=== PATIENT | female | born 1965 | race Caucasian/White ===

== ENCOUNTER 2022-01-22 08:11 | Day surgery (SDC) | payer OTHER, SELFPAY ==
[2022-01-22] VITALS (14 sets, daily range): BP systolic 125–190; BP diastolic 64–120; PULSE 64–90; RESP 10–20; TEMP 36.2–36.4; O2SAT 98–100
--- NOTE | ~2022-01-22 | XR_ITS ---
EXAMINATION: XR stent kub - surgery DATE: 01/22/2022 16:16 INDICATION: Right internal ureteral stent placement TECHNIQUE: Fluoroscopic images from a right internal ureteral stent placement are submitted for guerline canseco 22 seconds of fluoroscopy time. 40 fluoroscopic images FINDINGS: There is a right double-J internal ureteral stent projecting in expected position, with proximal Bradshaw loop at the level of the renal pelvis and distal loop in the pelvis within the bladder lumen. IMPRESSION: 1. Right internal ureteral stent placement. Please refer to real-time procedural findings for ernesto guzman. Reviewed, dictated and finalized at location B. [employer] IMPRESSION: 1. Right internal ureteral stent placement. Please refer to real-time procedu ral findings for details.
--- NOTE | ~2022-01-22 | CT_ITS ---
EXAMINATION: CT abdomen pelvis wo con DATE: 01/22/2022 09:21 INDICATION: Kidney stones presenting with right flank pain TECHNIQUE: Computed tomography (CT) of the abdomen and pelvis was performed without intravenous contr ast. Automated exposure control and iterative reconstruction technique were employed. The dose-length product was 1265.68 mGy-cm. COMPARISON: None FINDINGS: Lung bases are clear. Heart size is normal. No pericardial or pleural effusion. Small sliding-type hi atal hernia with postoperative change of prior sleeve gastrectomy. Liver, gallbladder, spleen, pancre as, bilateral adrenal glands are normal. 7 x 5 mm at least partially obstructing stone at the right u reteropelvic junction with mild right hydronephrosis. Couple 1 mm stones at middle and lower calyces of the right kidney. More distal right ureter is normal with no hydroureter or ureteral stones. Left kidney and ureter are normal with no left-sided urolithiasis or hydronephrosis. Moderate sigmoid pred ominant diverticulosis without adjacent inflammatory stranding to suggest diverticulitis. Small bowel and appendix are normal. Bladder, uterus and bilateral adnexa are unremarkable. A few phleboliths in the pelvis. No free intraperitoneal gas or fluid. No pathologically enlarged abdominal or pelvic lym phadenopathy. Mild thoracolumbar levocurvature with moderate spondylosis. IMPRESSION: 1. Right nephrolithiasis with at least partially obstructing 7 x 5 mm stone at the right ureteropelvi c junction with mild right hydronephrosis. 2. Small sliding-type hiatal hernia unchanged prior sleeve gastrectomy. 3. Moderate sigmoid diverticulosis. Reviewed, dictated and finalized at location A. Y HOST IMPRESSION: 1. Right nephrolithiasis with at least partially obstructing 7 x 5 mm stone at the right ureteropelvic junction with mild right hydronephrosis. 2. Small sliding-type hiatal hernia unchanged prior sleeve gastrectomy. 3. Moderate sigmoid diverticulosis.
[2022-01-22 08:48] LABS: Basophils Percent Auto 0.1 % (0.2-1.2); Eosinophils Absolute Auto 0.2 K/mm3 (0-0.3); Eosinophils Percent Auto 2.4 % (0-4.4); Hematocrit 46.2 % (37.0-47.0); Hemoglobin 15.2 g/dL (12.0-15.0); Immature Granulocyte Absolute 0.02 K/mm3 (0.00-0.031); Immature Granulocyte Percent A 0.3 % (0-0.5); Lymphocytes Absolute Auto 1.38 K/mm3 (0.9-3.2); Lymphocytes Percent Auto 20.6 % (18.3-44.2); Mean Corpuscular HGB Conc 32.9 g/dl (32-36); Mean Corpuscular Hemoglobin 28.5 pg (26-34); Mean Corpuscular Volume 86.5 fl (80-100); Mean Platelet Volume 11.7 fl (7.4-10.4); Monocytes Absolute Auto 0.5 K/mm3 (0.1-0.6); Monocytes Percent Auto 7.2 % (2.6-8.5); Neutrophils Absolute Auto 4.7 K/mm3 (1.3-6.7); Neutrophils Percent Auto 69.4 % (45.5-73.1); Platelet Count Result 216 k/mm3 (150-375); Red Blood Count 5.34 M/mm3 (4.2-5.4); Red Cell Distribution Width 14.1 % (11.5-14.5); White Blood Count 6.7 K/mm3 (4.5-10.0)
[2022-01-22 08:54] LABS: Appearance Urine Clear (Clear); Bilirubin Urine Negative (Negative); Blood Urine 2+ (Negative); Color Urine Yellow (Yellow); Glucose Urine UA Negative (Negative); Ketones Urine Negative (Negative); Leukocyte Esterase Ur Trace LEU/UL (Negative); Nitrate Urine Negative (Negative); Protein Urine 1+ mg/dL (Negative); Specific Grav Ur 1.025 (1.001-1.035); Urobilinogen Urine 0.2 mg/dL (<2.0); pH Urine 5.5 (5.0-9.0)
[2022-01-22 09:01] LABS: Alanine Aminotransferase 23 U/L (6-35); Albumin Level 4.2 g/dL (3.5-5.1); Alkaline Phosphatase 110 U/L (38-126); Anion Gap 11 mmol/L (8-16); Aspartate Amino Transferase 31 U/L (14-36); Bilirubin,Total 0.8 mg/dL (0.2-1.3); Blood Urea Nitrogen 20 mg/dL (7-17); Calcium 8.8 mg/dL (8.4-10.2); Carbon Dioxide 25 mmol/L (22-30); Chloride 105 mmol/L (98-107); Estimated CRCL calculation 68 ml/min; Estimated Glomerular Filt Rate 51; Glucose 115 mg/dL (65-110); Lipase 98 U/L (23-300); Potassium 4.1 mmol/L (3.4-5.0); Sodium 141 mmol/L (137-145)
[2022-01-22 09:03] LABS: Bacteria Urine Trace /hpf; Mucus Urine Rare /lpf; RBC Urine 21-50 /hpf (0-2); Squamous Epithelial Cell Urine Few /hpf (Few); WBC Urine 0-3 /hpf
--- NOTE | 2022-01-22 09:07 | ED.GENADULT ---
HPI - General Adult General Chief complaint: Back Pain/Injury Stated complaint: right flank pain Time Seen by Provider: 01/22/22 08:49 History of Present Illness HPI narrative: 57-year-old female past medical history of kidney stones presents with left flank and back pain, hematuria. Pain is intermittent and comes in waves of intensity. This feels like previous kidney stones that she has had although it has been quite sometime since she has had 1. Related Data Home Medications Medication Instructions Recorded Confirmed amitriptyline 25 mg tablet 25 mg PO HS 01/22/22 01/31/22 zolpidem 5 mg tablet 5 mg PO HS 01/22/22 01/31/22 Allergies Allergy/AdvReac Type Severity Reaction Status Date / Time sulfamethoxazole Allergy Redness of Verified 01/29/22 10:27 [From Skin Sulfamethoxazole-Trimethoprim] trimethoprim Allergy Redness of Verified 01/29/22 10:27 [From Skin Sulfamethoxazole-Trimethoprim] NSAIDS (Non-Steroidal AdvReac Unknown R/T Verified 01/29/22 10:25 Anti-Inflamma GASTRIC SLEEVE Review of Systems Review of Systems: CONSTITUTIONAL: Denies fever, chills, or sweats. EYES: Denies visual changes, redness, or discharge. ENT: Denies rhinorrhea, congestion, sore throat, or otalgia. CARDIOVASCULAR: Denies chest pain, palpitations, or edema. RESPIRATORY: Denies cough or dyspnea. GASTROINTESTINAL: Denies abdominal pain, nausea, vomiting, or diarrhea. GENITOURINARY: Denies dysuria or hematuria. SKIN: Denies rash or itching. MUSCULOSKELETAL: Denies back pain, joint pain, or myalgia. NEUROLOGIC: Denies headache, numbness, or weakness. PSYCHIATRIC: Denies anxiety or depression. [facility] Past Medical History Medical History Morbid obesity with BMI of 40.0-44.9, adult Right renal stone Ureterolithiasis Social History Social History Smoking status: Never smoker Alcohol intake: current Alcohol use details: VERY RARE Substance use: never Substance use type: does not use Living arrangements: with family Spiritual care concerns: No Exam Narrative: GENERAL: Well-appearing, well-nourished, and in no acute distress. HEAD: Normocephalic, atraumatic. EYES: PERRLA and EOMI. ENT: Nares clear, no rhinorrhea or epistaxis. Mucous membranes moist. NECK: Supple. CHEST: Clear to auscultation. No respiratory distress. HEART: Regular rate and rhythm. No murmur heard. Normal peripheral pulses. ABDOMEN: Soft, nontender, nondistended, normal active bowel sounds. EXTREMITIES: Normal range of motion. No edema. SKIN: Warm, dry, no rash. NEURO: No focal deficits. Alert and oriented x3. PSYCH: Normal mood and affect. Course Vital Signs Vital signs: Vital Signs Temperature 97.2 F L 01/22/22 08:15 Pulse Rate 90 01/22/22 08:15 Respiratory Rate 14 01/22/22 08:15 Blood Pressure 190/98 H 01/22/22 08:15 Pulse Oximetry 98 01/22/22 08:15 Oxygen Delivery Room Air 01/22/22 08:15 Temperature 97.1 F L 01/22/22 16:15 Pulse Rate 65 01/22/22 17:30 Respiratory Rate 16 01/22/22 17:30 Blood Pressure 149/96 H 01/22/22 17:30 Pulse Oximetry 100 01/22/22 16:45 Oxygen Delivery Room Air 01/22/22 17:30 Oxygen Flow Rate 8 01/22/22 16:30 Medical Decision Making MDM Narrative Medical decision making narrative: parres Vital Signs Vital Signs: Vital Signs Temperature 97.2 F L 01/22/22 08:15 Pulse Rate 90 01/22/22 08:15 Respiratory Rate 14 01/22/22 08:15 Blood Pressure 190/98 H 01/22/22 08:15 Pulse Oximetry 98 01/22/22 08:15 Oxygen Delivery Room Air 01/22/22 08:15 Temperature 97.1 F L 01/22/22 16:15 Pulse Rate 65 01/22/22 17:30 Respiratory Rate 16 01/22/22 17:30 Blood Pressure 149/96 H 01/22/22 17:30 Pulse Oximetry 100 01/22/22 16:45 Oxygen Delivery Room Air 01/22/22 17:30 Oxygen Flow Rate 8 01/22/22 16:30
[2022-01-22 09:12] LABS: Add Urine Microscopic? YES
[2022-01-22] MEDS: MORPHINE SULFATE (*CRX) 4 MG/ML INJ IV PUSH ×2 (09:51→11:11)
[2022-01-22] MEDS: LACTATED RINGERS 1,000 ML 500 ML IV CONT (09:51)
--- NOTE | 2022-01-22 12:09 | P.HP_ITS ---
History of Present Illness History of Present Illness Consent: Risks, benefits, and alternatives have been discussed and questions answered. Patient agrees to proceed with procedure. Chief complaint: right flank pain Narrative: Lisette Pineda is a 57 year old female, Previously unknown to our practice with a history of urolithiasis pass, presents to the ER with intractable right flank pain, nausea and vomiting. She denies fevers chills or gross hematuria. I maging demonstrates a partially obstructing 7 x 4 mm right UPJ calculus. After discussion of therapeutic options including medical expulsive therapy, stent placement with ESWL in the future versus outpatient ESWL she has elected for ureteral stent placement today. She will need definitive treatment with ESWL in the future. She is aware the risk of ureteral stent placement limited to, ureteral injury and the need to definitively treat the stone in the future. Review of Systems Review of Systems: All systems reviewed & are unremarkable except as noted in HPI and below Meds Home Medications and Allergies Allergies Allergy/AdvReac Type Severity Reaction Status Date / Time NSAIDS (Non-Steroidal AdvReac Severe Other Verified 01/22/22 08:30 Anti-Inflamma Vital Signs Vital Signs - 24 hr 01/22/22 08:15 01/22/22 08:37 01/22/22 10:16 Temperature 97.2 F L Pulse Rate 90 74 Respiratory Rate 14 16 Blood Pressure 190/98 H 151/86 H Pulse Oximetry 98 98 99 Oxygen Delivery Room Air 01/22/22 10:31 01/22/22 10:45 01/22/22 11:00 Temperature Pulse Rate 74 Respiratory Rate 18 Blood Pressure 140/120 H Pulse Oximetry 100 99 99 Oxygen Delivery Exam Const: General: no acute distress Resp: Effort & Inspection: normal respiratory effort GI: Inspection: non-distended GI Palp: No abdominal tenderness and No Guarding due to palpation present (GI) Auscultation: normal bowel sounds Assessment and Plan Assessment and plan (1) Right renal stone: Code(s): N20.0 - Calculus of kidney Status: Acute Assessment and Plan: * Cystoscopy with right ureteral stent placement today. * Right ESWL in the future
--- NOTE | 2022-01-22 12:12 | WPDHPUPDATE1 ---
History and Physical Update Update Date/Time: 01/22/22 12:12 History and Physical has been reviewed, including an updated exam of the patient. There are NO changes in the patient's condition. Risks, benefits, and alternatives have been discussed and questions answered. Patient agrees to proceed with procedure.
--- NOTE | 2022-01-22 12:58 | WPDANESEPPF ---
Anes - Initial Pre Proc Eval Procedure: Operation Date: 01/22/22 15:30 Proposed Procedures p Cystoscopy,Right Stent Placement - Norberto Talamantes MD Date/Time: 01/22/22 12:58 Surgeon: Norberto Talamantes MD Pre Op Diagnosis: right flank pain Patient Data Age: 57 Gender: F Height: 1.7 m Weight: 125 kg Last Vital Signs Temp 36.2 C L 01/22/22 08:15 Pulse 74 01/22/22 11:00 Resp 18 01/22/22 11:00 BP 140/120 H 01/22/22 11:00 Pulse Ox 99 01/22/22 11:00 O2 Del Method Room Air 01/22/22 08:15 Allergies Allergy/AdvReac Type Severity Reaction Status Date / Time NSAIDS (Non-Steroidal AdvReac Unknown R/T Verified 01/22/22 14:02 Anti-Inflamma GASTRIC SLEEVE Home Medications Medication Instructions Recorded Confirmed Type amitriptyline 25 mg tablet 25 mg PO HS 01/22/22 01/22/22 History zolpidem 5 mg tablet 5 mg PO HS 01/22/22 01/22/22 History Laboratory Tests 01/22/22 01/22/22 01/22/22 08:28 08:28 08:34 WBC 6.7 K/mm3 K/mm3 (4.5-10.0) RBC 5.34 M/mm3 M/mm3 (4.2-5.4) Hgb 15.2 g/dL H g/dL (12.0-15.0) Hct 46.2 % % (37.0-47.0) MCV 86.5 fl fl (80-100) MCH 28.5 pg pg (26-34) MCHC 32.9 g/dl g/dl (32-36) RDW 14.1 % % (11.5-14.5) Plt Count 216 k/mm3 k/mm3 (150-375) MPV 11.7 fl H fl (7.4-10.4) Immature Gran % (Auto) 0.3 % % (0-0.5) Neut % (Auto) 69.4 % % (45.5-73.1) Lymph % (Auto) 20.6 % % (18.3-44.2) [place] % (Auto) 7.2 % % (2.6-8.5) Eos % (Auto) 2.4 % % (0-4.4) Baso % (Auto) 0.1 % L % (0.2-1.2) Lymph # (Auto) 1.38 K/mm3 K/mm3 (0.9-3.2) [place] # (Auto) 0.5 K/mm3 K/mm3 (0.1-0.6) Eos # (Auto) 0.2 K/mm3 K/mm3 (0-0.3) Baso # (Auto) 0.0 K/mm3 K/mm3 (0.0-0.1) Abs Immat Gran (auto) 0.02 K/mm3 K/mm3 (0.00-0.031) Absolute Neuts (auto) 4.7 K/mm3 K/mm3 (1.3-6.7) Absolute Nucleated RBC 0.0 K/mm3 K/mm3 (0.0-0.012) Nucleated RBC % 0.0 % % (0.0-0.2) Sodium 141 mmol/L mmol/L (137-145) Potassium 4.1 mmol/L mmol/L (3.4-5.0) Chloride 105 mmol/L mmol/L (98-107) Carbon Dioxide 25 mmol/L mmol/L (22-30) Anion Gap 11 mmol/L mmol/L (8-16) BUN 20 mg/dL H mg/dL (7-17) Creatinine 1.10 mg/dL H mg/dL (0.7-1.0) Estim Creat Clear Calc 68 ml/min ml/min Estimated GFR 51 L (59 - ) Glucose 115 mg/dL H mg/dL (65-110) Calcium 8.8 mg/dL mg/dL (8.4-10.2) Total Bilirubin 0.8 mg/dL mg/dL (0.2-1.3) AST 31 U/L U/L (14-36) ALT 23 U/L U/L (6-35) Alkaline Phosphatase 110 U/L U/L (38-126) Total Protein 7.0 g/dL g/dL (6.3-8.2) Albumin 4.2 g/dL g/dL (3.5-5.1) Lipase 98 U/L U/L (23-300) Urine Color Yellow (Yellow) Urine Appearance Clear (Clear) Urine pH 5.5 (5.0-9.0) Ur Specific [place] 1.025 (1.001-1.035) Urine Protein 1+ mg/dL H mg/dL (Negative) Urine Glucose (UA) Negative mg/dL mg/dL (Negative) Urine Ketones Negative mg/dL mg/dL (Negative) Ur Blood (Man) 2+ H (Negative) Urine Nitrate Negative (Negative) Urine Bilirubin Negative (Negative) Urine Urobilinogen 0.2 mg/dL mg/dL (<2.0) Leukocyte Esterase Rfl Trace JOANN/UL H JOANN/UL (Negative) Urine RBC 21-50 /hpf H /hpf (0-2) Urine WBC 0-3 /hpf /hpf Ur Squamous Epith Cells Few /hpf /hpf (Few) Urine Bacteria Trace /hpf /hpf Urine Mucus Rare /lpf /lpf Patient hx anesthesia problems: none Family hx anesthesia problems: none Results Review: All pre-operative results and documents have been reviewe
[2022-01-22] MEDS: LACTATED RINGERS 1,000 ML 30 ML IV CONT (13:30)
[2022-01-22] MEDS: ceFAZolin 3 GM/D5W 100 ML 100 ML IVPB (15:48)
--- NOTE | 2022-01-22 16:10 | W.PM.PROC2 ---
Procedure Note - Detailed Date of Procedure 01/22/22 Pre-op Diagnosis Right UPJ calculus Post-op Diagnosis Same Procedure Performed Cystoscopy, right retrograde pyelography and right ureteral stent placement Surgeon Norberto Talamantes MD Anesthesia General Description of Procedure The patient was brought to the operative suite where he was prepped and draped in a routine sterile fashion while in the dorsal lithotomy position. A 19 F rigid cystoscope was placed in her bladder and the bladder was circumferentially inspected. There were no urethral strictures. The prostatic urethral estimated length was 1.5cm. There was mild obstruction of the prostatic urethra with no median lobe. The bladder mucosa was without hyperemia. There was no intravesical foreign body or neoplasm. There was a single orthotopic ureteral orifice bilaterally. 8 F bulb-tipped catheter used to obtain a retrograde pyelogram ensure appropriate positioning. I advanced .035 glidewire into the right renal pelvis under fluoroscopy. A 4.8F variable length ureteral stent was positioned with the proximal coil in the renal pelvis and the distal coil in the bladder. Scopes and wires were removed after emptying the patient's bladder. Estimated Blood Loss 0 Drains Yes Pathology None sent
[2022-01-22] MEDS: LIDOCAINE HCL 2% GEL UROJET 10 ML PKG MUCOUS MEM (16:12)
== END 2022-01-22 17:50 | disposition home or self-care (01) ==
LOC: ANHED 12:03 → ANHSURGERY 12:05
PROVIDERS: Emergency Provider Emergency Medicine; Visit Provider Urology
PROC: (CPT 52352; principal; 2022-01-22 15:30)
DX: N20.1 Calculus of ureter (principal); E66.01 Morbid (severe) obesity due to excess calories; Z68.41 Body mass index [BMI] 40.0-44.9, adult
CPT/HCPCS: 52332; 36415; 74176; 80053; 81001; 83690; 85025; 96361; 96374; 96376; 99285; A9270; C1758; C1769; C2617; J0690; J1100; J2250; J2270; J2405; J2704; J3010; J7120

== ENCOUNTER 2022-01-29 11:30 | Outpatient (CLI) | payer OTHER, SELFPAY ==
[2022-01-29 11:56] LABS: Appearance Urine Slightly Cloudy (Clear); Bilirubin Urine Negative (Negative); Blood Urine 3+ (Negative); Color Urine Yellow (Yellow); Glucose Urine UA Negative (Negative); Ketones Urine Negative (Negative); Leukocyte Esterase Ur 2+ LEU/UL (Negative); Nitrate Urine Negative (Negative); Protein Urine 2+ mg/dL (Negative); Specific Grav Ur 1.025 (1.001-1.035); Urobilinogen Urine 0.2 mg/dL (<2.0)
[2022-01-29 12:00] LABS: Add Urine Microscopic? YES; Mucus Urine Rare /lpf; RBC Urine >75 /hpf (0-2); Squamous Epithelial Cell Urine Occasional /hpf (Few); WBC Urine 21-30 /hpf
[2022-01-29 12:03] LABS: Prothrombin Time 12.7 Seconds (11.1-14.7)
[2022-01-29 12:05] LABS: Partial Thromboplastin Time 27.7 SECONDS (22.3-36.8)
== END 2022-01-29 11:31 | disposition home or self-care (01) ==
PROVIDERS: Visit Provider Urology
DX: N20.0 Calculus of kidney (principal); Z01.818 Encounter for other preprocedural examination
CPT/HCPCS: 36415; 81001; 85610; 85730; 87086

== ENCOUNTER 2022-01-31 01:27 | Day surgery (SDC) | payer OTHER, SELFPAY ==
[2022-01-29 10:28] VITALS: BMI 43.0
--- NOTE | 2022-01-29 10:33 | PC.NURSE ---
Report to the Outpatient Waiting Room, entrance under the green pavilion located off [facility], at time 10:30 on date 01/31/22. Planned Procedure Time: 12:30. Time changes happen often and if your time is changed the preop area will call you the afternoon before. - You and your visitor will be asked to self-screen and do not enter if you have any COVID symptoms. - Only one visitor is requested with a max of two and NO children visitors are allowed at this time. - The patient visitor may be requested to leave or wait in car when not with patient due to distancing restrictions. - A mask is optional within the hospital. Patients may have clear liquids (water, carbonated beverages, clear teas, apple juice) until 3 hours prior to surgery (9:30) with a maximum of 20 ounces. - No food from midnight until time of surgery Take the following medications with a SIP of water the morning of surgery: PAIN PILL IF NEEDED Medications to discontinue per physician: N/A Date to take last dose: N/A Please no make-up, nail kazakh, hairspray, perfume, deodorant, or body powder the day of surgery. No jewelry (including any body piercings) or valuables the day of surgery, leave them at home. Please take a shower or bath the night before, or the morning of, surgery with an antibacterial soap. Wear comfortable, loose fitting clothing. - Jewelry must be removed prior to entering the operating room. Rings and piercings that are not removed may be cut off. - The hospital will not accept responsibility for valuables. - Please leave all valuables, including medications, at home the day of surgery. If you are going home after surgery, a licensed trash collector truck driver must drive you home. - NO public transportation without another adult if you receive anesthesia. - We recommend that an adult stay with you for 24 hours following discharge. - We also recommend that you do not drive, make important decision, drink alcoholic beverages, or take any drugs that were not prescribed by your health care provider for at least 24 hours after your discharge time. Follow any additional instructions given to you from your surgeon. If you or anyone in your household have experienced Covid symptoms in the past week, please notify your surgeon or the nurse liaison at the phone number below for possible testing. Telephone instructions given to PT - FESTUS HERNANDEZ and asked if any additional questions and then verbalized understanding. Patient advised to call surgeon office or pre surgery nurse liaison [phone] if any additional questions.
[2022-01-31] VITALS (9 sets, daily range): BP systolic 101–137; BP diastolic 43–87; PULSE 70–90; RESP 9–20; TEMP 36.2–36.3; O2SAT 98–100
--- NOTE | ~2022-01-31 | XR_ITS ---
EXAMINATION: XR abdomen/kub 1V DATE: 01/31/2022 10:35 INDICATION: Kidney stone. TECHNIQUE: A supine view of the abdomen on 2 radiographs was obtained. COMPARISON: CT abdomen and pelvis 01/22/2022 FINDINGS: There are no dilated loops of bowel. There is a right internal ureteral stent in expected p osition. There is a 7 mm stone in right kidney lower pole. There are phleboliths in the pelvis. IMPRESSION: 1. 7 mm stone in right kidney lower pole. 2. Right internal ureteral stent in expected position. Reviewed, dictated and finalized at location A. ER [employer]
--- NOTE | 2022-01-31 06:46 | WPDHPUPDATE1 ---
History and Physical Update Update Date/Time: 01/31/22 06:46 History and Physical has been reviewed, including an updated exam of the patient. There are NO changes in the patient's condition. Risks, benefits, and alternatives have been discussed and questions answered. Patient agrees to proceed with procedure.
--- NOTE | 2022-01-31 11:00 | P.PNAN_ITS ---
Anes - Initial Pre Proc Eval Procedure: Operation Date: 01/31/22 12:30 Proposed Procedures p Right Extracorporeal Shock Wave Lithotripsy - Norberto Talamantes MD Date/Time: 01/31/22 11:00 Surgeon: Norberto Talamantes MD Pre Op Diagnosis: right upj Patient Data Age: 57 Gender: F Height: 1.7 m Weight: 138.3 kg Last Vital Signs Temp 36.3 C L 01/31/22 10:37 Pulse 90 01/31/22 10:37 Resp 20 01/31/22 10:37 BP 137/86 01/31/22 10:37 Pulse Ox 98 01/31/22 10:37 O2 Del Method Room Air 01/31/22 10:37 Allergies Allergy/AdvReac Type Severity Reaction Status Date / Time sulfamethoxazole Allergy Redness of Verified 01/29/22 10:27 [From Skin Sulfamethoxazole-Trimethoprim] trimethoprim Allergy Redness of Verified 01/29/22 10:27 [From Skin Sulfamethoxazole-Trimethoprim] NSAIDS (Non-Steroidal AdvReac Unknown R/T Verified 01/29/22 10:25 Anti-Inflamma GASTRIC SLEEVE Home Medications Medication Instructions Recorded Confirmed Type amitriptyline 25 mg tablet 25 mg PO HS 01/22/22 01/31/22 History hydrocodone 5 mg-acetaminophen 325 1 - 2 tablet PO Q6H PRN pain #20 01/22/22 01/31/22 Rx mg tablet tabs zolpidem 5 mg tablet 5 mg PO HS 01/22/22 01/31/22 History Patient hx anesthesia problems: none Family hx anesthesia problems: none Results Review: All pre-operative results and documents have been reviewed as part of the pre- operative evaluation. [facility] Past Medical History Medical History Morbid obesity with BMI of 40.0-44.9, adult Right renal stone Ureterolithiasis Social History Social History Smoking status: Never smoker Alcohol intake: current Alcohol use details: VERY RARE Substance use: never Substance use type: does not use Living arrangements: with family Spiritual care concerns: No Anes - Eval Final PreProcedure Day of Procedure 01/31/22 11:00 Patient weight: morbidly obese Heart: regular rate and rhythm Lungs: clear to auscultation Airway: Mallampati scale class II Neurological: alert and oriented Last oral intake: >/= 8 hours ASA classification: III Emergent: no Anesthetic plan: proceed Anesthesia type and monitoring: general LMA and standard monitoring Results Review: All pre-operative results and documents have been reviewed as part of the pre- operative evaluation. Informed Consent: The patient's anesthetic plan and its attendant risks and benefits were discussed with the patient/family/POA. Questions were solicited and answers provided to the satisfaction of the patient/family/POA.
[2022-01-31] MEDS: LACTATED RINGERS 1,000 ML 30 ML IV CONT (11:05)
[2022-01-31] MEDS: ceFAZolin 3 GM/D5W 100 ML 100 ML IVPB (12:09)
--- NOTE | 2022-01-31 12:56 | P.OP_ITS ---
Procedure Note - Detailed Date of Procedure 01/31/22 Pre-op Diagnosis Right renal calculus Post-op Diagnosis Same Procedure Performed Cysto, right ureteral stent removal and right ESWL Surgeon Norberto Talamantes MD Anesthesia General Description of Procedure The patient was brought to the operative suite where she was placed in the frog- legged position on the Dornier lithotripter table. Flexible cystoscopy was undertaken with a 16F flexible cystoscopy. Her urethra and bladder neck were endoscopically normal. The bladder mucosa was normal and there was a single, orthotopic ureteral orifice bilaterally. The tip of the indwelling stent is grasped and it is removed with ease. The patient was then repositioned in the supine position and the focal point of the lithotriptor was placed at a 10mm right renal calculus. A total of 2500 shocks were delivered at a power setting of 4. There appeared to be good fragmentation of the stone. The patient tolerated the procedure well and was taken to the recovery room in good condition. Drains No Packing No Pathology None sent Complications No immediate complications
[2022-01-31] MEDS: oxyCODONE HCL (*CRX) 5 MG TAB IR PO (13:54)
== END 2022-01-31 15:13 | disposition home or self-care (01) ==
PROVIDERS: Visit Provider Urology
PROC: (CPT 50590; principal; 2022-01-31 12:30)
DX: N20.0 Calculus of kidney (principal); E66.01 Morbid (severe) obesity due to excess calories; Z68.42 Body mass index [BMI] 45.0-49.9, adult; F10.90 Alcohol use, unspecified, uncomplicated; Z87.442 Personal history of urinary calculi
CPT/HCPCS: 50590; 36415; 74018; 81001; 85610; 85730; 87086; A9270; C1769; J0690; J1100; J2250; J2405; J2704; J3010; J7030; J7120

== ENCOUNTER 2024-04-21 14:40 | Emergency (ER) | payer OTHER, SELFPAY ==
--- NOTE | ~2024-04-21 | XR_ITS ---
EXAMINATION: XR chest 2V DATE: 04/21/2024 15:58 INDICATION: Cough. TECHNIQUE: Frontal and lateral views of the chest were obtained. COMPARISON: CT abdomen and pelvis 01/22/2022 FINDINGS: There is no pneumonia, pleural effusion, or pneumothorax. The heart size is normal. IMPRESSION: 1. No acute cardiopulmonary disease. Reviewed, dictated and finalized at location A. [employer] ASSEMBLER
--- NOTE | 2024-04-21 14:56 | ED_ITS ---
HPI - URI/Sore Throat General Chief Complaint: Upper Respiratory Infection Stated Complaint: Sinus Time Seen by Provider: 04/21/24 15:42 Source: patient, RN notes reviewed and old records reviewed Mode of arrival: ambulatory Limitations: no limitations History of Present Illness HPI Narrative: Patient presents with complaints of flu-like symptoms that have been present since yesterday. She has been taking multiple [id number]-[id number] medications with moderate relief. She reports most bothersome symptoms are fever, cough, wheezing. She is not any distress, including respiratory distress. She voices no other concerns or complaints at this time. is here with similar complaints Related Data Home Medications ?Medication ?Instructions ?Recorded ?Confirmed ?Last Taken ?Type amitriptyline 25 mg tablet 25 mg PO HS 01/22/22 01/31/22 01/30/22 History zolpidem 5 mg tablet 5 mg PO HS 01/22/22 01/31/22 01/30/22 History Allergies Allergy/AdvReac Type Severity Reaction Status Date / Time sulfamethoxazole (From Allergy Redness of Verified 04/21/24 15:06 Sulfamethoxazole-Trimethoprim) Skin trimethoprim (From Allergy Redness of Verified 04/21/24 15:06 Sulfamethoxazole-Trimethoprim) Skin NSAIDS (Non-Steroidal AdvReac Unknown R/T Verified 04/21/24 15:06 Anti-Inflamma GASTRIC SLEEVE Review of Systems Review of Systems: All systems reviewed & are unremarkable except as noted in HPI and below Constitutional: Constitutional: Reports no additional constitutional complaints, Reports fever(s) and Reports lethargy ENT: Reports system reviewed and no additional complaints, except as documented, Reports nasal congestion and Reports nasal discharge Cardiovascular: Cardiovascular: Reports no additional cardiovascular complaints Respiratory: Respiratory: Reports no additional respiratory complaints, Reports cough and Reports wheezing Gastrointestinal: Gastrointestinal: Reports no additional gastrointestinal complaints [facility] Past Medical History Medical History Morbid obesity with BMI of 40.0-44.9, adult Ureterolithiasis Right renal stone Social History Social History Smoking status: Never smoker Alcohol intake: current Alcohol use details: VERY RARE Substance use: never Substance use type: does not use Living arrangements: with family Spiritual care concerns: No Comments At the time of my signature, I reviewed and agree with the nursing past medical, surgical, social, and family history. There is no relevant family history pertinent to the patient complaint. Exam Const: General: cooperative, no acute distress, alert and awake Orientation/consciousness: oriented to person, oriented to place and oriented to time HENMT: Head: normal to inspection Ears: TM's normal bilaterally Mouth: Yes moist mucous membranes Throat: posterior oropharynx normal Resp: Effort & Inspection: normal respiratory effort and able to speak in complete sentences Auscultation: clear to auscultation bilaterally, crackles, no rales, no rhonchi and wheezes expiratory wheezes (Mild, scattered) Cardio: Palpation: normal PMI Rate: regular rate Rhythm: regular rhythm Heart sounds: S1 normal heart sound present and S2 normal heart sound present Neuro: General: oriented to person, oriented to place and oriented to time Cranial nerves: Yes CN's II-XII intact bilaterally Psych: Appearance: grossly normal Thought process: Normal thought process present Insight: Good insight present (Psych) Judgement: Good judgement present (Psych) Course Course Level of Care: Express Care Visit Vital Signs Vital signs: Vital Signs Temperature 98.4 F 04/21/24 15:07 Pulse Rate 104 H 04/21/24 15:07 Respiratory Rate 18 04/21/24 15:07 Blood Pressure 112/70 04/21/24 15:07 Pulse Oximetry 100 04/21/24 15:07 Oxygen Delivery Room Air 04/21/24 15:07 Temperature 98.4 F 04/21/24 15:07 Pulse Rate 104 H 04/21/24 15:07 Respiratory Rate 18 04/21/24 15:07 Blood Pressure 112/70 04/21/24 15:07 Pulse Oximetry 100 04/21/24 15:07 Oxygen Delivery Room Air 04/21/24 15:07 Reviewed MDM - URI/Sore Throat MDM Narrative Medical decision making narrative: Negative COVID, negative flu. Chest x-ray with no acute findings. History and exam consistent with bronchitis. Start steroid burst and bronchodilator. Discharge instructions reviewed with patient, as well as provided in writing per nursing staff. The instructions also include specific and strict return/GO TO THE ER as well as f/u information. All questions have been answered, and the patient deny any further questions with discharge and discharge plan. Some parts of this dictation were generated by voice recognition software and may contain typographical and/or grammatical inaccuracies. Differential Diagnosis Differential diagnosis: Likely upper respiratory infection, otitis media, viral infection and influenza Medical Records Attestation: I reviewed the patient's medical records. Lab Data Attestation: I reviewed the patient's lab results. Labs: Lab Results 04/21/24 Range/Units 15:14 POC Influenza A Ag Negative (Negative) POC Influenza B Ag Negative (Negative) POC SARS CoV-2 Ag Negative (Negative) Imaging Data Attestation: I personally reviewed and interpreted this imaging study as follows: My impression: No acute finding Radiologist's impression: [facility] [address] [place] [address] XRay Report Signed Patient: Lisette Pineda : 1965 MR#: [id number] Age: 59 Acct:[id number] Loc: [facility] ADM Date: 04/21/24Attending Dr: Ordering Physician: Harmony Gibbs FNP Date of Service: 04/21/24 Procedure(s): XR chest 2V Accession Number(s): [id number] cc: Harmony Gibbs FNP; BILLING AND ACCOUNTING STAFF ASSISTANT PHYSICIAN~ EXAMINATION: XR chest 2V DATE: 04/21/2024 15:58 INDICATION: Cough. TECHNIQUE: Frontal and lateral views of the chest were obtained. COMPARISON: CT abdomen and pelvis 01/22/2022 FINDINGS: There is no pneumonia, pleural effusion, or pneumothorax. The heart size is normal. IMPRESSION: 1. No acute cardiopulmonary disease. Reviewed, dictated and finalized at location A. GER PATIENT Please be advised this is a medical document. It is intended for [id number] communication. It is written in medical language and may contain unfamiliar abbreviations or verbiage. Medical documents are intended to carry relevant information, facts as evident, and the clinical opinion of the practitioner at the time of the encounter. This report may have been done utilizing a voice recognition system. Attempts have been made to correct errors. However, there may be uncorrected grammatical, spelling, and recognition errors present. The file time of this note does not necessarily represent the time of service. Dictated By: Gamaliel Mcgill MD 04/21/24 1606 Signed By: <Electronically signed by Gamaliel Mcgill MD in OV> Discharge Plan Discharge Clinical Impression: Bronchitis Patient Disposition: Home, Self-Care Condition: Stable Instructions: Antibiotic Form, Acute Bronchitis (ED) Additional Instructions: Take medications as prescribed. Follow-up with primary care provider. Emergency department for new or worse symptoms Patient Language: Belizean Prescriptions: New prednisone 50 mg tablet 50 mg PO DAILY Qty: 5 0RF albuterol sulfate [Ventolin HFA] 90 mcg/actuation HFA aerosol inhaler 2 puff inhalation QID PRN (Reason: shortness of breath or wheezing) Qty: 8.5 0RF No Action amitriptyline 25 mg tablet 25 mg PO HS zolpidem 5 mg tablet 5 mg PO HS Follow-up/Referrals: PHYSICIAN,BILLING AND ACCOUNTING STAFF ASSISTANT [Primary Care Provider] - 1 Week Time of Disposition: 16:29
[2024-04-21 15:07] VITALS: BP 112/70; PULSE 104; RESP 18; TEMP 36.9; O2SAT 100
[2024-04-21 15:49] LABS: EDCOVIDSCREEN Negative (Negative); EDINFLUASCREEN Negative (Negative); EDINFLUBSCREEN Negative (Negative)
== END 2024-04-21 16:42 | disposition home or self-care (01) ==
PROVIDERS: Emergency Provider Nurse Practitioner Family
DX: J40 Bronchitis, not specified as acute or chronic (principal); Z20.822 Contact with and (suspected) exposure to COVID-19; E66.01 Morbid (severe) obesity due to excess calories; Z68.39 Body mass index [BMI] 39.0-39.9, adult
CPT/HCPCS: 71046; 87426; 87804; 99213; G0463

== ENCOUNTER 2024-04-28 13:02 | Emergency (ER) | payer OTHER, SELFPAY ==
--- NOTE | ~2024-04-28 | XR_ITS ---
EXAMINATION: XR chest 2V DATE: 04/28/2024 13:54 INDICATION: One week of productive cough TECHNIQUE: frontal and lateral views of the chest were obtained. COMPARISON: Chest radiograph dated 04/21/2024 FINDINGS: The lungs remain clear with no focal airspace opacities, pulmonary edema, pleural effusion or pneumot horax. The cardiomediastinal silhouette is normal. Mild thoracic spondylosis. IMPRESSION: 1. No acute cardiopulmonary disease. Reviewed, dictated and finalized at location B. [employer]OD EDUC[employer] WORKER
[2024-04-28 13:18] VITALS: BP 108/72; PULSE 75; RESP 16; TEMP 36.1; O2SAT 99
--- NOTE | 2024-04-28 13:34 | ED_ITS ---
HPI - URI/Sore Throat General Chief Complaint: Upper Respiratory Infection Stated Complaint: loss of smell,cough,back hurts Time Seen by Provider: 04/28/24 13:20 Source: patient Mode of arrival: ambulatory Limitations: no limitations History of Present Illness HPI Narrative: Lisette is a 5-year-old female patient presenting to the clinic today with complaints of loss of smell, cough, and mid back pain from cough. States the loss of smell had started the last 3-4 days. Has had a cough over the last week. Was seen here in the clinic a week ago and tested for COVID and flu were negative. Was diagnosed with bronchitis and has been using albuterol inhaler and has taken her prednisone. Chest x-ray was completed last visit and negative for any sign of pneumonia. MD elicited complaint: cough, nasal congestion and other (Back pain) Related Data Home Medications ?Medication ?Instructions ?Recorded ?Confirmed ?Last Taken ?Type dextroamphetamine-amphetamine 10 10 mg PO 04/28/24 Unknown History mg tablet tirzepatide 7.5 mg/0.5 mL mg subcut 04/28/24 Unknown History subcutaneous pen injector (Mounjaro) zolpidem 10 mg tablet 10 mg PO QHS 04/28/24 04/28/24 Unknown History Allergies Allergy/AdvReac Type Severity Reaction Status Date / Time sulfamethoxazole (From Allergy Redness of Verified 04/28/24 13:22 Sulfamethoxazole-Trimethoprim) Skin trimethoprim (From Allergy Redness of Verified 04/28/24 13:22 Sulfamethoxazole-Trimethoprim) Skin NSAIDS (Non-Steroidal AdvReac Unknown R/T Verified 04/28/24 13:22 Anti-Inflamma GASTRIC SLEEVE Review of Systems Review of Systems: Pertinent positives per HPI. Patient denies any fever, chills, rash, headache, visual changes, dizziness, shortness of breath, chest pain, palpitations, nausea, vomiting, diarrhea, constipation, abdominal pain, or any urinary issues. [facility] Past Medical History Medical History Morbid obesity with BMI of 40.0-44.9, adult Ureterolithiasis Right renal stone Social History Social History Smoking status: Never smoker Alcohol intake: current Alcohol use details: VERY RARE Substance use: never Substance use type: does not use Living arrangements: with family Spiritual care concerns: No Comments At the time of my signature, I reviewed and agree with the nursing past medical, surgical, social, and family history. There is no relevant family history pertinent to the patient complaint. Exam Narrative: General: Well-developed, well nourished, in no apparent distress Head: Normocephalic, atraumatic Eyes: Pupils equally round and reactive to light bilaterally, EOM intact, sclera and conjunctive clear, no discharge, lids normal Ears: TMs intact and clear, ear canals clear, no drainage, grossly hearing normal. Nose: Nares patent, clear nasal discharge, no inflammation, no sinus tenderness. Mouth: Oral pharynx without lesions or masses, good dentition, MMM. Neck: Supple, trachea midline, no enlargement of anterior or posterior cervical nodes, no thyroid masses or goiter palpable. Cardio: Regular rate and rhythm, s1 and s2 normal, no murmur appreciated. Resp: Diminished in the bases, no rhonchi, rales, wheezing or rubs Course Course Emergency Course: Portions of this record may have been created with voice recognition software. Level of Care: Express Care Visit Vital Signs Vital signs: Vital Signs Temperature 36.1 C L 04/28/24 13:18 Pulse Rate 75 04/28/24 13:18 Respiratory Rate 16 04/28/24 13:18 Blood Pressure 108/72 04/28/24 13:18 Pulse Oximetry 99 04/28/24 13:18 Oxygen Delivery Room Air 04/28/24 13:18 Temperature 36.1 C L 04/28/24 13:18 Pulse Rate 75 04/28/24 13:18 Respiratory Rate 16 04/28/24 13:18 Blood Pressure 108/72 04/28/24 13:18 Pulse Oximetry 99 04/28/24 13:18 Oxygen Delivery Room Air 04/28/24 13:18 Vital signs reviewed MDM - URI/Sore Throat MDM Narrative Medical decision making narrative: At the time of visit patient is resting comfortably on the exam table. Patient appears to be nontoxic. Labs: COVID and influenza testing was completed per patient request Diagnostics: Chest x-ray was performed and is negative for any acute cardiopulmonary process Plan: I suspect patient has bronchitis. Rx for tessalon pearls, prednisone, and azithromycin was sent to the pharmacy. Supportive measures were discussed with the patient and they voiced understanding discharge instructions and agrees to treatment plan. Return precautions reviewed Differential Diagnosis Differential diagnosis: Likely upper respiratory infection, otitis media, sinusitis, viral infection, bronchitis, influenza, pharyngitis and other (COVID) Lab Data Labs: Lab Results 04/28/24 Range/Units 13:52 POC Influenza A Ag Negative (Negative) POC Influenza B Ag Negative (Negative) POC SARS CoV-2 Ag Negative (Negative) Discharge Plan Discharge Clinical Impression: Bronchitis Patient Disposition: Home, Self-Care Condition: Stable Instructions: Antibiotic Form, Acute Bronchitis (ED) Additional Instructions: Chest x-rays negative for any acute cardiopulmonary process Take prescription medications only as prescribed-azithromycin, Tessalon Perles, and prednisone Continue albuterol inhaler as needed Increase fluids and stay well hydrated Tylenol/motrin for pain/fever Flonase and OTC antihistamines as directed Vicks vapor rub to open sinuses Sinus rinses for congestion Cepacol spray, cough drops, throat lozenges, warm tea with honey/lemon, gargle salt water to soothe throat BRAT diet for diarrhea Clear liquids x 24 hours then advance as tolerated for nausea/vomiting Go to the ED if you develop a worsening in your condition- high fever not controlled by Tylenol or Motrin, dehydration, weakness, lethargy, shortness of breath, or chest pain. Follow up with your PCP in 3-5 days if symptoms persist. Patient Language: Argentine Prescriptions: New azithromycin 250 mg tablet See Rx Instructions .ROUTE .COMPLEX Qty: 6 0RF Rx Instructions: For 250 mg dose pack: take 500 mg today (day 1), then 250 mg for 4 days (days 2-5) benzonatate 200 mg capsule 200 mg PO TID 7 Days Qty: 21 0RF prednisone 20 mg tablet 40 mg PO DAILY 5 Days Qty: 10 0RF No Action albuterol sulfate [Ventolin HFA] 90 mcg/actuation HFA aerosol inhaler 2 puff inhalation QID PRN (Reason: shortness of breath or wheezing) Qty: 8.5 0RF albuterol sulfate [Ventolin HFA] 90 mcg/actuation HFA aerosol inhaler 2 puff inhalation QID PRN (Reason: shortness of breath or wheezing) Qty: 8.5 0RF dextroamphetamine-amphetamine 10 mg tablet 10 mg PO zolpidem 10 mg tablet 10 mg PO QHS Mounjaro 7.5 mg/0.5 mL pen injector SUBCUT Follow-up/Referrals: PHYSICIAN NOT ON STAFF,NONSTAFF [Primary Care Provider] - Stand Alone Forms: Work/School Release IP Time of Disposition: 14:17 Quality NIHSS Nursing Documentation ED NIHSS nursing documentation: reviewed/agree
[2024-04-28 13:54] LABS: EDCOVIDSCREEN Negative (Negative); EDINFLUASCREEN Negative (Negative); EDINFLUBSCREEN Negative (Negative)
== END 2024-04-28 14:20 | disposition home or self-care (01) ==
PROVIDERS: Emergency Provider Nurse Practitioner Family
DX: J40 Bronchitis, not specified as acute or chronic (principal); Z20.822 Contact with and (suspected) exposure to COVID-19; E66.01 Morbid (severe) obesity due to excess calories; Z68.39 Body mass index [BMI] 39.0-39.9, adult
CPT/HCPCS: 71046; 87426; 87804; 99213; G0463

== ENCOUNTER 2025-01-07 00:44 | Day surgery (SDC) | payer OTHER, SELFPAY ==
--- OUTSIDE RECORDS SUMMARY | 2014-08-05 08:00 | XMS_ITS | Continuity of Care Document ---
Author Organization [employer] [facility] Address [address] [place] [address] [address] [place] [address] Phone Care Team Providers Care Faculty Administrator Name Role Phone Holger WAGGONER CHT, Beth Unavailable Unavailable Procedures Procedure Date THERAPEUTIC EXERCISES MANUAL THERAPY FUNC ACTIVITY IONTOPHORESIS 15 MIN HOT/COLD PACK THERAPEUTIC EXERCISES MANUAL THERAPY FUNC ACTIVITY IONTOPHORESIS 15 MIN HOT/COLD PACK THERAPEUTIC EXERCISES MANUAL THERAPY FUNC ACTIVITY IONTOPHORESIS 15 MIN HOT/COLD PACK THERAPEUTIC EXERCISES FUNC ACTIVITY IONTOPHORESIS 15 MIN HOT/COLD PACK THERAPEUTIC EXERCISES MANUAL THERAPY FUNC ACTIVITY IONTOPHORESIS 15 MIN HOT/COLD PACK THERAPEUTIC EXERCISES FUNC ACTIVITY IONTOPHORESIS 15 MIN HOT/COLD PACK THERAPEUTIC EXERCISES FUNC ACTIVITY IONTOPHORESIS 15 MIN HOT/COLD PACK THERAPEUTIC EXERCISES FUNC ACTIVITY IONTOPHORESIS 15 MIN HOT/COLD PACK THERAPEUTIC EXERCISES IONTOPHORESIS 15 MIN HOT/COLD PACK THERAPEUTIC EXERCISES FUNC ACTIVITY IONTOPHORESIS 15 MIN HOT/COLD PACK THERAPEUTIC EXERCISES FUNC ACTIVITY IONTOPHORESIS 15 MIN HOT/COLD PACK THERAPEUTIC EXERCISES FUNC ACTIVITY IONTOPHORESIS 15 MIN HOT/COLD PACK THERAPEUTIC EXERCISES MANUAL THERAPY FUNC ACTIVITY IONTOPHORESIS 15 MIN HOT/COLD PACK THERAPEUTIC EXERCISES MANUAL THERAPY FUNC ACTIVITY IONTOPHORESIS 15 MIN HOT/COLD PACK THERAPEUTIC EXERCISES MANUAL THERAPY FUNC ACTIVITY IONTOPHORESIS 15 MIN HOT/COLD PACK THERAPEUTIC EXERCISES MANUAL THERAPY FUNC ACTIVITY PHONOPHORESIS 15 MIN HOT/COLD PACK PT EVALUATION THERAPEUTIC EXERCISES MANUAL THERAPY HOT/COLD PACK Advance Directives Directive Yes / No Effective Date File Name No Information Encounters Encounter Description Practice Location Reason(s) For Visit Diagnoses Date Provider Providers Copied on Encounter [facility], [id number], [place] tel:[phone] [place] No Information Holger Jackson. [address] [facility], [address], [place], [address], [place]. tel: [phone] Referring Provider: Baltazar Alvarado, [address], [place], [address]. tel:[phone] [facility], [address], [place], [id number], tel:[phone] [place] No Information Holger Jackson. [address] [facility], [address], [place], [facility], . tel: [phone] Referring Provider: Baltazar Alvarado, [address], [place], [address]. tel:[phone] [place], [place] [address] [address], [place], [place], [id number], tel:[phone] [place] No Information Holger Jackson. [address] [facility], [address], [place], [facility], . tel: [phone] Referring Provider: Baltazar Alvarado, [address], [place], [place], [facility]. tel:[phone] [place], [place] [address], [place], [id number], tel:[phone] [place] No Information Grace Salmon. [address] [facility], [address], [place], [facility], . tel: [phone] Referring Provider: Baltazar Alvarado, [address], [place], [address]. [phone] [place], [place] [address], [place], [id number], tel:[phone] [place] No Information Holger Jackson. [address] [facility], [address], [place], [facility], . tel: [phone] Referring Provider: Baltazar Alvarado, [address], [place], [address]. tel:[phone] [place], [place] [address], [place], [id number], tel:[phone] [place] No Information Holger Jackson. [address] [facility], [address], [place], [place], [facility], . tel:[phone] Referring Provider: Baltazar Alvarado, [address], [place], [address]. tel:[phone] [place], [place] [address], [place], [place], [id number], tel:[phone] [place] No Information Holger Jackson. [address] [facility], [address], [place], [place], [facility], [place]. tel:[phone] Referring Provider: Baltazar Alvarado, [address], [place], [address]. [phone] [place], [place] [address], [id number], tel:[phone] [place] No Information Holger Jackson. [address] [facility], [address], [place], [facility], [place]. tel:[phone] Referring Provider: [address], [place], [address]. tel:[phone] [place], [place] [address], [place], [place], [id number], tel:[phone] [place] No Information Mary Gay. . Referring Provider: Baltazar Alvarado, [address], [place], [address]. tel:[phone] [place], [place] [address] [address], [place], [id number], tel:[phone] [place] No Information Holger Jackson. [address] [facility], [address], [place], [place], [facility], . tel:[phone] Referring Provider: Baltazar Alvarado, [address], [place], [address]. tel:[phone] [place] [address] [address], [place], [place], [id number], tel:[phone] [place] No Information Holger Jackson. [address] [facility], [address], [place], [place], [facility], . tel: [phone] Referring Provider: Baltazar Alvarado, [address], [place], [place], [facility]. tel:[phone] [place], [place] [address], [place], [place], [id number], tel:[phone] [place] No Information Holger Jackson. [address] [place] [address], [address], [place], [facility], . tel: [phone] Referring Provider: Baltazar Alvarado, [address], [place], [place], [facility]. tel:[phone] [place], [place] [address], [place], [place], [id number], [place] tel:[phone] [place] No Information Holger Jackson. [address] [place] [address], [address], [place], [facility], [place]. tel: [phone] Referring Provider: Baltazar Alvarado, [address], [place], [address]. tel:[phone] [place] [address] [address], [place], [place], [id number], [place] tel:[phone] [place] No Information Holger Jackson. [address] [place] [address], [address], [place], [facility], [place]. tel: [phone] Referring Provider: Baltazar Alvarado, [address], [place], [address]. tel:[phone] [place] [address] [address], [id number], tel:[phone] [place] No Information Holger Jackson. [address] [facility], [address], [place], [facility], . tel:[phone] Referring Provider: [address], [place], [address]. tel:[phone] [address], [place], [id number], tel:[phone] [place] No Information Holger Jackson. [address] [facility], [address], [place], [address], . tel:[phone] Referring Provider: Baltazar Alvarado, [address], [place], [address]. tel:[phone] [address], [place], [id number], tel:[phone] [place] Pain in joint involving forearm Holger Jackson. [address] [facility], [address], [place], [address], . [phone] Referring Provider: Baltazar Alvarado, [address], [place], [address]. tel:[phone] Family History Family Member Type Diagnosis Age At Onset No Information Payers Payer name Insurance type Covered constitution party ID Authoriza tion(s) No Information Social History Type Description Quantity Date Captured Comments Sex Female Smoking Status No Information Chief Complaint And Reason For Visit No Information Reason For Referral Reason For Referral No Information History Of Present Illness Encounter Date Complaint History Of Prese nt Illness No Information Functional Status Date Functional Assessmen t No Information Instructions Date Instruction Additional Infor mation No Information Assessments Type Assessment Date No Information Patient Care Teams Name Effective Dates (start - stop) Status Members No Information
[2024-12-27 10:43] VITALS: BMI 38.7
--- OUTSIDE RECORDS SUMMARY | 2025-01-07 00:47 | XMS_ITS | Clinical Summary ---
Author Organization [facility] Address [address] [place] [address] Care Team Providers Care Passenger Representative Name Role Phone Unavailable Primary Care Provider Unavailabl e Source Comments [facility] [employer],non-owned Affiliates and Associated Physician Practices is amultiple site organization consisting of ambulatory clinics and hospital sitesin [place], [place], [place] and [place]. This disclosure is being madepursuant to the Care Everywhere program and may not contain all information available regarding this patient. Last updated 17.[facility] [employer] Allergies No known active allergies Medications * Be aware that medications may not be up to date on this document. Alwaysverify current medications with the patient. Albuterol Sulfate (PROAIR HFA IN) Inhale by mouth as needed. Active rizatriptan (MAXALT) 10 MG tablet Take 10 mg by mouth once as needed. Active Vitamins/Mineral s TABS Take 1 Tab by mouth 2 times daily. Active Calcium Citrate-Vitamin D (CALCIUM CITRATE + D PO) Take 500 mg by mouth 3 times daily. Active Thiamine HCl 100 MG TABS Take 1 Tab by mouth once daily. Active Omeprazole Magnesium (PRILOSEC OTC PO) Take 20 mg by mouth once daily. Active cyanocobalamin, vitamin B-12, injection Inject 1,000 mcg into muscle every 30 days. 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 Gender Identity Female 06/11/2024 7:07 AM CDT Sexual Orientation Lesbian 06/11/2024 7: 07 AM CDT Last Filed Vital Signs Vital Sign Reading Time Taken Comments Blood Pressure 125/85 07/23/2011 3:00 PM CDT Pulse 70 07/23/2011 3:00 PM CDT Temperature 36.9 C (98.4 F) 07/04/2011 2:45 PM CDT Respiratory Rate 17 07/23/2011 3:00 PM CDT Oxygen Saturation 99% 06/27/2011 3:27 PM CDT Inhaled Oxygen Concentration - - Weight 151.5 kg (334 lb) 07/01/2024 2:34 PM CDT Height 170.2 cm (5' 7) 07/01/2024 2:34 PM CDT Body Mass Index 52.31 07/01/2024 2:34 PM CDT Plan of Treatment Health Maintenance Due Date Last Done Comments COLOGUARD (AGES 45-75) - COL ON CA SCREENING 1964 COLON MONITORING 1964 COLONOSCOPY - COLON CA SCREENING 1964 CT COLONOGRAPHY - COLON CA SCREENING 1964 Colorectal Cancer Screening 1964 FIT - COLON CA SCREENING 1964 FLEX SIG - COLON CA SCREENING 1964 LIPID TESTING 1964 HIV SCREENING 01/05/1979 HEPATITIS C SCREENING 01/01/1982 DTAP/TDAP/TD VACCINES (1 - Tdap) 01/05/1983 PAP SMEAR 01/05/1985 PNEUMOCOCCAL VACCINE 50+ (1 of 1 - PCV) 01/05/2014 ZOSTER VACCINE (1 of 2) 01/05/2014 Respiratory Syncytial Virus (RSV) Vaccine Pt: or over 60 yrs (1 - Risk 60-74 years 1-dose series) 2024 DEPRESSION SCREENING 03/03/2024 COVID-19 VACCINE (1 - 2023-2 5 season) 2024 INFLUENZA VACCINE (#1) 2024 MAMMOGRAM 07/01/2026 07/01/2024, 01/09/2015, 2013 HEPATITIS B VACCINE Aged Out No longe r eligible based on patient's age to complete this topic HIB VACCINE Aged Out No longer eligi ble based on patient's age to complete this topic HPV VACCINE Aged Out No longer eligi ble based on patient's age to complete this topic MENINGOCOCCAL (Group B) VACCINE SHARED DECISION-MAKING Aged Out No longer eligible based on patient's age to complete this topic MENINGOCOCCAL GROUPS A/C/Y/W VACCINE Aged Out No longer eligible b ased on patient's age to complete this topic Procedures Procedure Name Priority Date/Time Associated Diagnosis Comments MAMMO BILAT SCREENING W AMOL Routine 07/01/2024 2:49 PM CDT Encounter for screening mammogram for breast cancer from Last 3 Months or Most Recently Relevant to Health Maintenance Results * Mammo Bilat Screening W Amol (07/01/2024 2:49 PM CDT) Anatomical Region Laterality Modality Breast Bilateral Mammography 07/02/2024 10:2 7 AM CDT Impressions 07/02/2024 10:31 AM CDT IMPRESSION: No mammographic evidence of malignancy in either breast. ASSESSMENT: BIRADS Category 1: Negative mammogram. RECOMMENDATION: Bilateral screening mammogram in one year. Thank you for allowing us to participate in the care of your patient. [facility] utilizes Glad to Have You as a reminder system to notify patients of their next recommended mammogram. > Interpreting Provider: Beronica Pardo MD on 07/02/2024 10:31 AM Narrative 07/02/2024 10:31 AM CDT EXAMINATION: Digital screening mammogram. Low-dose full-field digital breast tomosynthesis examination was performed with synthetic 2D images. Computer assisted detection was utilized. DATE: 07/01/2024 2:50 PM PRIOR: 2014 BREAST PARENCHYMAL DENSITY: The breasts are almost entirely fatty. FINDINGS: No suspicious masses, areas of architectural distortion or microcalcifications are evident on synthetic 2D mammogram or tomosynthesis images. There has been no significant interval change since the prior examination. us Baltazar Patterson MD MAMMO ORDERABLES Final Res ult from Last 3 Months or Most Recently Relevant to Health Maintenance Insurance * Guarantor: Lisette Pineda Account Type Relation to Patient Date of Phone Billing Address Personal/Family Self 1965 [phone] (Work) [address] [place] [address] [facility] Address: [facility] [id number] [place] [phone] Advance Directives * FULL RESUSCITATION (Latest Code Status on File) Date Activated Date Inactivated Comments 06/26/2011 3:44 PM 06/28/2011 4:45 AM
--- NOTE | 2025-01-07 07:09 | WPDANESEPPF ---
Anes - Initial Pre Proc Eval Procedure: Operation Date: 01/07/25 08:30 Proposed Procedures p Screening Colonoscopy - Jun Ragsdale MD Date/Time: 01/07/25 07:09 Surgeon: Jun Ragsdale MD Pre Op Diagnosis: Screening Patient Data Age: 60 Gender: F Height: 1.7 m Weight: 112.2 kg Allergies Allergy/AdvReac Type Severity Reaction Status Date / Time sulfamethoxazole (From Allergy Redness of Verified 01/07/25 07:24 Sulfamethoxazole-Trimethoprim) Skin trimethoprim (From Allergy Redness of Verified 01/07/25 07:24 Sulfamethoxazole-Trimethoprim) Skin NSAIDS (Non-Steroidal AdvReac Unknown R/T Verified 01/07/25 07:24 Anti-Inflamma GASTRIC SLEEVE Home Medications ?Medication ?Instructions ?Recorded ?Confirmed ?Type albuterol sulfate 90 mcg/actuation 2 puff inhalation QID PRN 04/21/24 01/07/25 Rx aerosol inhaler (Ventolin HFA) shortness of breath or wheezing #8.5 grams albuterol sulfate 90 mcg/actuation 2 puff inhalation QID PRN 04/21/24 01/07/25 Rx aerosol inhaler (Ventolin HFA) shortness of breath or wheezing #8.5 grams azithromycin 250 mg tablet See Rx Instructions PO .COMPLEX #6 04/28/24 01/07/25 Rx tabs benzonatate 200 mg capsule 200 mg PO TID 7 days #21 caps 04/28/24 01/07/25 Rx dextroamphetamine-amphetamine 10 10 mg PO DAILY 04/28/24 01/07/25 History mg tablet tirzepatide 7.5 mg/0.5 mL 7.5 mg subcut WEEKLY 04/28/24 01/07/25 History subcutaneous pen injector (Mounjaro) zolpidem 10 mg tablet 10 mg PO QHS 04/28/24 01/07/25 History Patient hx anesthesia problems: none Family hx anesthesia problems: none Results Review: All pre-operative results and documents have been reviewed as part of the pre-operative evaluation. [facility] Past Medical History Medical History (Updated 01/07/25 @ 08:26 by Jun Ragsdale MD) Colon cancer screening ADHD Morbid obesity with BMI of 40.0-44.9, adult Ureterolithiasis Right renal stone Surgical History Surgical History (Updated 01/06/25 @ 16:01 by Kosta Owens DO) History of sleeve gastrectomy Social History Social History Smoking status: Never smoker Alcohol intake: never Alcohol use details: VERY RARE Substance use: never Substance use type: prescription drug Living arrangements: with family Spiritual care concerns: No Anes - Eval Final PreProcedure Day of Procedure 01/07/25 07:09 Patient weight: obese Heart: regular rate and rhythm Lungs: clear to auscultation Airway: Mallampati scale class II Neurological: alert and oriented Last oral intake: >/= 8 hours ASA classification: II Emergent: no Anesthetic plan: proceed Anesthesia type and monitoring: general GIVS and standard monitoring Results Review: All pre-operative results and documents have been reviewed as part of the pre-operative evaluation. Informed Consent: The patient's anesthetic plan and its attendant risks and benefits were discussed with the patient/family/POA. Questions were solicited and answers provided to the satisfaction of the patient/family/POA.
[2025-01-07 07:17] VITALS: BP 133/87; PULSE 84; RESP 16; TEMP 36.2; O2SAT 99; BMI 40.0
[2025-01-07] MEDS: LACTATED RINGERS 1,000 ML 150 ML IV CONT (07:37)
--- NOTE | 2025-01-07 08:26 | PM.HPGS ---
History of Present Illness History of Present Illness Consent: Risks, benefits, and alternatives have been discussed and questions answered. Patient agrees to proceed with procedure. Chief complaint: Screening Narrative: Lisette Pineda is a 60 year old female here for screening colonoscopy, last one about 6 years ago Review of Systems Review of Systems: All systems reviewed & are unremarkable except as noted in HPI and below PMFSH Past Medical History Medical History (Updated 01/07/25 @ 08:26 by Jun Ragsdale MD) Colon cancer screening ADHD Morbid obesity with BMI of 40.0-44.9, adult Ureterolithiasis Right renal stone Surgical History Surgical History (Updated 01/06/25 @ 16:01 by Kosta Owens DO) History of sleeve gastrectomy Social History Social History Smoking status: Never smoker Alcohol intake: never Alcohol use details: VERY RARE Substance use: never Substance use type: prescription drug Living arrangements: with family Spiritual care concerns: No Meds Home Medications and Allergies Home Medications ?Medication ?Instructions ?Recorded ?Confirmed ?Type albuterol sulfate 90 mcg/actuation 2 puff inhalation QID PRN 04/21/24 01/07/25 Rx aerosol inhaler (Ventolin HFA) shortness of breath or wheezing #8.5 grams albuterol sulfate 90 mcg/actuation 2 puff inhalation QID PRN 04/21/24 01/07/25 Rx aerosol inhaler (Ventolin HFA) shortness of breath or wheezing #8.5 grams azithromycin 250 mg tablet See Rx Instructions PO .COMPLEX #6 04/28/24 01/07/25 Rx tabs benzonatate 200 mg capsule 200 mg PO TID 7 days #21 caps 04/28/24 01/07/25 Rx dextroamphetamine-amphetamine 10 10 mg PO DAILY 04/28/24 01/07/25 History mg tablet tirzepatide 7.5 mg/0.5 mL 7.5 mg subcut WEEKLY 04/28/24 01/07/25 History subcutaneous pen injector (Mounjaro) zolpidem 10 mg tablet 10 mg PO QHS 04/28/24 01/07/25 History Allergies Allergy/AdvReac Type Severity Reaction Status Date / Time sulfamethoxazole (From Allergy Redness of Verified 01/07/25 07:24 Sulfamethoxazole-Trimethoprim) Skin trimethoprim (From Allergy Redness of Verified 01/07/25 07:24 Sulfamethoxazole-Trimethoprim) Skin NSAIDS (Non-Steroidal AdvReac Unknown R/T Verified 01/07/25 07:24 Anti-Inflamma GASTRIC SLEEVE Vital Signs Vital Signs - 24 hr 01/07/25 07:17 Temperature 97.1 F L Pulse Rate 84 Respiratory Rate 16 Blood Pressure 133/87 Pulse Oximetry 99 Oxygen Delivery Room Air Exam Const: General: comfortable and no acute distress HENMT: Face/Nose/Sinus: Normal nares present Eyes: General: appearance normal, both eyes and all related structures Neck: Neck: no JVD Resp: Auscultation: clear to auscultation bilaterally Cardio: Rate: regular rate Rhythm: regular rhythm GI: Inspection: non-distended GI Palp: Yes Soft to palpation Skin: General skin exam: normal color Extrem: General: normal to inspection Psych: Mental Status: mental status grossly normal Assessment and Plan Assessment and plan (1) Colon cancer screening: Code(s): Z12.11 - Encounter for screening for malignant neoplasm of colon Status: Acute Assessment and Plan: colonoscopy
[2025-01-07 08:38] VITALS: BP 113/60; PULSE 77; RESP 15; O2SAT 97
[2025-01-07 08:48] VITALS: BP 109/59; PULSE 73; RESP 16; O2SAT 99
[2025-01-07 08:58] VITALS: BP 119/79; PULSE 70; RESP 19; O2SAT 99
== END 2025-01-07 09:05 | disposition home or self-care (01) ==
PROVIDERS: Visit Provider Internal Medicine Gastroenterology
PROC: 0DJD8ZZ Inspection of Lower Intestinal Tract, Via Natural or Artificial Opening Endoscopic (ICD-10-PCS; CPT 45378; principal; 2025-01-07 08:30)
DX: Z12.11 Encounter for screening for malignant neoplasm of colon (principal); K57.30 Diverticulosis of large intestine without perforation or abscess without bleeding; F90.9 Attention-deficit hyperactivity disorder, unspecified type; E66.9 Obesity, unspecified; Z68.41 Body mass index [BMI] 40.0-44.9, adult; Z79.51 Long term (current) use of inhaled steroids; Z79.85 Long-term (current) use of injectable non-insulin antidiabetic drugs; Z98.84 Bariatric surgery status; Z87.442 Personal history of urinary calculi
CPT/HCPCS: 45378; J2704; J7120